=== PATIENT | female | born 1955 | race Caucasian/White ===

== ENCOUNTER 2016-07-23 15:21 | Emergency (ER) | payer OTHER ==
[~2016-07-23 15:21] MED LIST: AMITRIPTYLINE H50 MG PO; AMITRYPTYLINE PO; BACTRIM DS TABL1 TA1 PO; BETIMOL5 ML OP; CLONAZEPAM2 MG PO; GABAPENTIN300 MG PO; GABAPENTIN400 M2 PO; KLONOPIN PO; LEXAPRO5 MG PO; LIPITOR PO; LIPITOR40 MG PO; NEURONTIN; NORCO 7.5-3251 EACH PO; PAXIL PO; PERCOCET 10/3251 TAB PO; PREVACID PO; PROTONIX PO; SEROQUEL50 M1 PO; TIZANIDINE HCL4 M1 PO
== END 2016-07-23 15:46 | disposition home or self-care (01) ==
LOC: SED 15:21
DX: K04.7 Periapical abscess without sinus (principal); K21.9 Gastro-esophageal reflux disease without esophagitis; F41.9 Anxiety disorder, unspecified; F32.9 Major depressive disorder, single episode, unspecified
CPT/HCPCS: 96372; 99283; J0696